=== PATIENT | female | born 1955 | race Caucasian/White ===

== ENCOUNTER → 2017-02-02 | Outpatient (CLI) | payer OTHER ==
[~2017-02-02] MED LIST: ASA 81 MG; ASPIRIN325 M1 PO; ASPIRIN81 M1 PO; BISACODYL5 MG PO; CIPRO PO; DISCONTINUED MED; DOCUSATE SODIU100 MG PO; HYDROCODON-ACE1 EAC7 PO; HYDROCODON-ACE1 EAC9 PO; IMODIUM2 MG PO; METOPROLOL TART25 MG PO; NAPROXEN PO; NAPROXEN SODIU220 M1 PO; SENNA PO; SYNTHROID125 PO; TYLOX1 CAP 5/50 PO; WARFARIN SODIUM6 MG PO; [UNRECOGNIZED DRUG - OTHER]
[2017-02-02 10:21] LABS: THYROID STIMULATING HORMONE 7.84 uIU/ml (0.34-5.60)
[2017-02-02 14:57] LABS: FREE THYROXIN (T4) 1.12 ng/dL (0.58-1.64)
== END | disposition home or self-care (01) ==
LOC: SLAB 09:12
PROVIDERS: Specialist
DX: E05.90 Thyrotoxicosis, unspecified without thyrotoxic crisis or storm (principal)
CPT/HCPCS: 36415; 84439; 84443